=== PATIENT | male | born 1945 | race Caucasian/White ===

== ENCOUNTER 2020-09-13 | Outpatient (REF) | payer MEDICARE, SELFPAY ==
[2020-09-20 15:07] LABS: OBS Int Ctl Valid YES; OBS1 POS (NEG); OBS2 POS (NEG); OBS3 POS (NEG)
== END 2020-09-13 00:01 | disposition home or self-care (01) ==
LOC: HO.LNP
PROVIDERS: Visit Provider Physician Assistant
DX: K92.1 Melena (principal)
CPT/HCPCS: 82270

== ENCOUNTER 2021-08-15 12:36 | Outpatient (REF) | payer MEDICARE, SELFPAY | END 2021-08-15 12:37 | disposition home or self-care (01) | LOC: HO.MANLNP 12:36 | PROVIDERS: PCP Internal Medicine; Visit Provider Internal Medicine | DX: Z13.89 Encounter for screening for other disorder (principal) | CPT/HCPCS: 82270 ==

== ENCOUNTER 2023-08-13 11:44 | Outpatient (REF) | payer MEDICARE, SELFPAY ==
[2023-08-13 12:43] LABS: MANUAL DIFF FLAG NO
[2023-08-13 12:48] LABS: Basophils Percent Auto 0.2 % (0-2); Eosinophils Absolute Auto 0.3 X10*3/uL (0.0-0.4); Eosinophils Percent Auto 4.5 % (0-4); Hematocrit 38.9 % (42.0-52.0); Hemoglobin 12.7 g/dl (14.0-18.0); Imm Gran Abs Auto 0.04 X10*3/uL (0.00-0.03); Imm Gran Pct Auto 0.7 % (0.0-0.4); Lymphocytes Absolute Auto 0.9 X10*3/uL (1.2-4.9); Lymphocytes Percent Auto 15.9 % (20-40); Mean Corpuscular HGB Conc 32.6 g/dl (31.0-36.0); Mean Corpuscular Hemoglobin 32.1 pg (27.0-33.0); Mean Corpuscular Volume 98.2 fL (80.0-98.0); Monocytes Absolute Auto 0.5 X10*3/uL (0.1-1.2); Neutrophils Absolute Auto 4.1 x10*3/uL (2.0-8.3); Neutrophils Percent Auto 70.7 % (45-73); Platelet Count 200 X10*3/uL (160-400); Red Blood Count 3.96 X10*6/uL (4.60-5.80); Red Cell Distribution Width 12.5 % (11.0-16.0); White Blood Count 5.7 X10*3/uL (4.8-10.8)
[2023-08-13 13:38] LABS: Alanine Aminotransferase 16 U/L (0-40); Albumin Level 4.1 g/dL (3.5-5.0); Alkaline Phosphatase 48 U/L (39-117); Anion Gap 14 (12-20); Aspartate Amino Transferase 16 U/L (5-37); Bilirubin Total 0.3 mg/dL (0.0-1.0); Blood Urea Nitrogen 21 mg/dL (9-16); Calcium 9.3 mg/dL (8.4-10.2); Carbon Dioxide 26 mmol/L (22-29); Chloride 105 mmol/L (96-108); Cholesterol 156 mg/dL (<200); Estimated Glomerular Filt Rate 54; Glucose Random 92 mg/dL (60-115); HDL Cholesterol 35 mg/dL (>40); LDL Cholesterol Calculated 92 mg/dL (<100); Potassium 4.2 mmol/L (3.3-5.1); Sodium 141 mmol/L (135-145); Total Protein 6.7 g/dL (6.5-8.0); Triglycerides 145 mg/dL (<150)
[2023-08-13 14:10] LABS: Prostate Specific Antigen < 0.10 ng/mL (<0.05-4.0)
== END 2023-08-13 11:45 | disposition home or self-care (01) ==
LOC: HO.MANLDS 11:44
PROVIDERS: Visit Provider Internal Medicine
DX: Z12.5 Encounter for screening for malignant neoplasm of prostate (principal); I10 Essential (primary) hypertension
CPT/HCPCS: 36415; 80053; 80061; 84153; 85025

== ENCOUNTER 2025-07-08 10:11 | Outpatient (REF) | payer MEDICARE, SELFPAY ==
--- OUTSIDE RECORDS SUMMARY | 2025-07-08 10:46 | XMS_ITS | Clinical Summary ---
Author Organization [facility], Address [address] [place] [phone] Phone Care Team Providers Care Airway Traffic Controller Name Role Phone Stanislav Munoz Primary Care Provider [phone] Allergies Active Allergy Reactions Criticality Noted Date Comments Amoxicillin 02/07/2022 Linaclotide 02/07/2023 Other reaction(s): vomiting Penicillins Other (see comments),Rash Low 12/20/2009 Medications zolpidem (AMBIEN) 10 MG tablet Take 1 tablet by mouth at bed time 7 Active Melatonin 5 MG tablet Take 1 tablet by mouth at bed time Active HYDROmorphone (DILAUDID) 4 MG tablet Take 1 tablet by mouth 4 (four) times a day 7 Active diphenhydrAMINE (BENADRYL) 25 MG tablet 1 tablet as needed Active omeprazole (PriLOSEC) [address] capsule Take 1 capsule by mouth 1 (one) time each day 7 Active NIFEdipine CC (ADALAT CC) 30 MG 24 hr tablet nifedipine ER 30 mg tablet,extended release TAKE 1 TABLET BY MOUTH EVERY DAY Active carvedilol (COREG) 25 MG tablet Take 25 mg by mouth 2 (two) times a day with meals Active clobetasol (TEMOVATE) 0.05 % cream clobetasol 0.05 % topical cream APPLY A THIN LAYER TO THE AFFECTED AREA BY TOPICAL ROUTE 2 TIMES PER DAY Active ondansetron (ZOFRAN) 4 MG tablet Take 4 mg by mouth every 8 (eight) hours if needed 1 Active mupirocin (BACTROBAN) 2 % ointment mupirocin 2 % topical ointment APPLY SMALL AMOUNT TOPICALLY TO THE AFFECTED AREA THREE TIMES DAILY Active linaCLOtide (Linzess) 145 MCG capsule if needed Active Active Problems Problem Noted Date Diagnosed Date Low back pain 02/07/2023 Stage 3a chronic kidney disease 08/02/2020 Overview (10/23/2020): Update for Diagnosis Load History of nephrectomy 08/02/2020 Chronic kidney disease due to hypertension 02/15 Absent kidney 02/16/2020 Proteinuria 02/16/2020 Essential hypertension 07/16/2019 Overview (02/07/2023): Last Assessment & Plan: Blood pressure here in the office was 140/72. He is on carvedilol 25 mg twice daily, nifedipine 30 mg daily which he will remain on without change. His blood pressure log from home shows an average blood pressure of 127/66. Last Assessment & Plan: Blood Pressure is well controlled today 118/70. He will continue on his carvedilol 25 mg twice daily and nifedipine 30 mg daily.. He denies any cardiac symptoms at this time. He continues to be very active and has lost 10 pounds which she is encouraged to continue following a heart healthy diet Nonsustained ventricular tachycardia 01/25/2019 Overview (09/20/2020): Last Assessment & Plan: Patient has been asymptomatic without palpitations, shortness of breath or chest pain for over 4 months. We will continue carvedilol 12.5 mg twice a day. I did instruct him to let us know if his palpitations recur prior to his next follow-up. Cardiac catheterization showed no CAD. We can consider repeating an event monitor if his symptoms recur in the future. Anemia 12/06/2018 Overview (02/16/2020): Last Assessment & Plan: Mild anemia, H/H stable. Iron studies show ferritin and iron within normal limits as well as total iron binding capacity. Iron saturation slightly low. -As an outpatient patient could benefit from supplemental iron however as this would contribute to further constipation, will hold off at this time. Hypophosphatemia 12/06/2018 Overview (02/16/2020): Last Assessment & Plan: Now normalized after replacing potassium via K-Phos. Hold off on further supplementation. Renal cell carcinoma 06/03/2018 Carcinoma of urinary bladder, superficial 2017 Resolved Problems Problem Noted Date Diagnosed Date Resolved Date Stage 3b chronic kidney disease 09/27/2020 02/06/2021 Overview (10/23/2020): Update for Diagnosis Load Chronic kidney disease stage 3 02/16/2020 08/02/2020 Hypertensive disorder 06/03/20182020 Immunizations Immunization Administration Dates Next Due Influenza Split High Dose Pr eservative Free IM 07/17/2020,07/17/2020,07/08/2017,07/08,07/20/2015 Influenza, Quadrivalent, Wit h Preservative 07/17/2020,07/28/2019,07/28/2019,07/01,07/01/2018 Influenza, Trivalent, Adjuvanted 06/26/2016 Influenza, Unspecified 07/17/2020,07/08/2018 Pfizer SARS-COV-2 09/26/2021,,12/10/2020,11/18,11/18/2020 Pneumococcal Conjugate 13-Valent 08/09/2015,1010/2014,07/20/2015 Pneumococcal Polysaccharide 07/01/2018, 8 Tdap 08/30/2020,08/30/2020 Zoster 12/18/2018, 9,09/29/2018,09/28 Family History Medical History Relation Comments Heart disease Daughter Diabetes Son Relation Status Comments Daughter Father Mother Alive Son Social History Tobacco Use Types Packs/Day Years Used Date Smoking Tobacco: Never Alcohol Use Standard Drinks/Week Comments No 0 (1 standard drink = 0.6 oz pur e alcohol) Sex and Gender Information Value Date Recorded Sex Assigned at Not on file Legal Sex Male 4:37 PM EST Gender Identity Not on file Sexual Orientation Not on file Occupation Industry Job Start Date Job End Date Retired Not on file Not on file Not on file Last Filed Vital Signs Vital Sign Reading Time Taken Comments Blood Pressure 115/62 02/10/2023 1:27 PM EDT Pulse 68 02/10/2023 1:27 PM EDT Temperature 36.7 C (98 F) 03/08/2019 12:00 PM EDT Respiratory Rate 14 02/10/2023 1:27 PM EDT Oxygen Saturation - - Inhaled Oxygen Concentration - - Weight 84.8 kg (187 lb) 02/10/2023 1:27 PM EDT Height 180.3 cm (5' 11 ) 02/10/2023 1:27 PM EDT Body Mass Index 26.08 02/10/2023 1:27 PM EDT Plan of Treatment Health Maintenance Due Date Last Done Comments Influenza Vaccine (#1) 2025 , 07/17/2020, 07/17/2020, Additional history exists Pneumococcal Vaccine: 50+ Years Completed 07/01/2018, 07/01/2018, 08/09/2015, Additional history exists Pneumococcal Vaccine: Peds (0 to 5 Years) and At-Risk Patients (6 to 49 Years) Discontinued 07/01/2018, 07/01/2018, 08/09/2015, Additional history exists Hepatitis B Vaccine Aged Out No longe r eligible based on patient's age to complete this topic Insurance Medicare [facility] Care Teams Airway Traffic Controller Relationship Specialty Start Date End Date Stanislav Munoz DO [address] [place] [address] PCP - General 08/24/19
--- OUTSIDE RECORDS SUMMARY | 2025-07-08 10:46 | XMS_ITS | Clinical Summary ---
Author Organization [facility] Address [address] [place] [address] Care Team Providers Care Industrial Pharmacist Name Role Phone Unavailable Primary Care Provider Unavailabl e Social History Tobacco Use Types Packs/Day Years Used Date Smoking Tobacco: Never Assessed Sex and Gender Information Value Date Recorded Sex Assigned at Not on file Legal Sex Male 2:14 PM EDT Gender Identity Not on file Sexual Orientation Not on file Plan of Treatment Health Maintenance Due Date Last Done Comments Advance Care Planning 1945 DTaP/Tdap/Td Vaccines (1 - Tdap) 02/22/1964 Pneumococcal Vaccines 50+ (1 of 1 - PCV) 1995 Zoster (Shingles) Vaccine (1 of 2) 1995 RSV Vaccine 60 years and old er and Patients (1 - 1-dose 75+ series) 02/22/2020 COVID-19 Vaccine (2023-2 5 season) 2025 Hepatitis B Vaccines Aged Out No long er eligible based on patient's age to complete this topic
[2025-07-08 13:29] LABS: Appearance Urine Clear; Glucose Urine UA Negative (Negative); PH 7.0 (5.0-9.0); Specific Gravity - Urine 1.015 (1.005-1.025); UMIC TRIGGER UA YES
[2025-07-08 14:05] LABS: Alanine Aminotransferase 21 U/L (0-40); Albumin Level 4.0 g/dL (3.5-5.0); Alkaline Phosphatase 47 U/L (39-117); Anion Gap 7 (12-20); Aspartate Amino Transferase 27 U/L (5-37); Blood Urea Nitrogen 28 mg/dL (9-16); Calcium 8.9 mg/dL (8.4-10.2); Carbon Dioxide 30 mmol/L (22-29); Chloride 108 mmol/L (96-108); Estimated Glomerular Filt Rate 59; Magnesium 2.1 mg/dL (1.6-2.6); Potassium 4.3 mmol/L (3.3-5.1); Sodium 141 mmol/L (135-145); Total Protein 6.1 g/dL (6.5-8.0)
[2025-07-08 14:21] LABS: Parathyroid Hormone Intact 59.7 pg/mL (8.7-77.1)
== END 2025-07-08 10:12 | disposition home or self-care (01) ==
LOC: HO.MANLDS 10:11
PROVIDERS: Visit Provider Internal Medicine
DX: N18.9 Chronic kidney disease, unspecified (principal)
CPT/HCPCS: 36415; 80053; 81001; 83735; 83970; 84100

== ENCOUNTER 2025-07-19 11:17 | Outpatient (REF) | payer MEDICARE, SELFPAY ==
--- OUTSIDE RECORDS SUMMARY | 2025-07-19 12:45 | XMS_ITS | Clinical Summary ---
Author Organization [facility] Address [address] [place] [address] Care Team Providers Care Title I Math Tutor Name Role Phone Unavailable Primary Care Provider [...]
--- OUTSIDE RECORDS SUMMARY | 2025-07-19 12:45 | XMS_ITS | Clinical Summary ---
Author Organization [facility], Address [address] [place] [phone] Phone Care Team Providers Care Naturalization Examiner Name Role Phone Stanislav Munoz Primary Care Provider [phone] Allergies Active Allergy Reactions Criticality Noted Date [...] age to complete this topic Insurance Medicare [facility] Care Teams Naturalization Examiner Relationship Specialty Start Date End Date Stanislav Munoz DO [address] [facility] [place] [phone] PCP - General 08/24/19
[2025-07-19 13:49] LABS: Appearance Urine Turbid; Glucose Urine UA Negative (Negative); PH >= 9.0 (5.0-9.0); Specific Gravity - Urine 1.015 (1.005-1.025); UMIC TRIGGER UACC YES
[2025-07-19 14:11] LABS: Other Crystals Urine Present; UACC Culture Trigger YES
== END 2025-07-19 11:18 | disposition home or self-care (01) ==
LOC: HO.MANLDS 11:17
PROVIDERS: Visit Provider Internal Medicine
DX: R30.0 Dysuria (principal)
CPT/HCPCS: 81001; 87086

== ENCOUNTER 2025-07-25 13:29 | Outpatient (REF) | payer MEDICARE, SELFPAY ==
--- OUTSIDE RECORDS SUMMARY | 2025-07-25 15:53 | XMS_ITS | Clinical Summary ---
Author Organization [facility] Address [address] [place] [address] Care Team Providers Care Fisheries Technical Officer Name Role Phone Unavailable Primary Care Provider [...]
[2025-07-25 18:09] LABS: Appearance Urine Clear; Glucose Urine UA Negative (Negative); PH 8.5 (5.0-9.0); Specific Gravity - Urine 1.015 (1.005-1.025); UMIC TRIGGER UA YES
== END 2025-07-25 13:30 | disposition home or self-care (01) ==
LOC: HO.MANLDS 13:29
PROVIDERS: Visit Provider Internal Medicine
DX: R30.0 Dysuria (principal)
CPT/HCPCS: 81001